=== PATIENT | female | born 1945 | race American Indian/Alaskan Native ===

== ENCOUNTER 2017-01-21 06:43 | Day surgery (SDC) | payer BC, MEDICARE ==
[2017-01-16 08:42] VITALS: BMI 27.0
[2017-01-21 07:28] LABS: ADD MANUAL DIFF? NO
[2017-01-21 07:36] LABS: BASO # 0.01 K/mm3 (0.0-2.0); BASO % 0.2 % (0.0-3.0); EOS # 0.1 (0.0-0.7); EOS % 1.8 % (1.5-5.0); GRAN % 80.8 % (50.0-68.0); HEMATOCRIT 34.5 % (36.0-48.0); LYMPH # 0.5 (1.2-3.4); LYMPH % 9.5 % (22.0-35.0); MEAN CELL VOLUME 94.5 fL (80.0-105.0); MEAN CORPUSCULAR HEMOGLOBIN 31.8 pg (25.0-35.0); MEAN CORPUSCULAR HGB CONC 33.6 g/dl (31.0-37.0); MEAN PLATELET VOLUME 8.8 fl (7.0-11.0); MONO # 0.4 (0.1-0.6); MONO % 7.7 % (1.0-6.0); PLATELET COUNT 152 10^3/uL (120.0-450.0); RED CELL DISTRIBUTION WIDTH 13.8 % (11.5-14.5); WHITE BLOOD COUNT 5.5 10^3/ul (4.5-11.0)
--- NOTE | 2017-01-21 07:39 | HP ---
REASON FOR ADMISSION: Left heart catheterization, possible angioplasty, because of abnormal stress t est. BRIEF CLINICAL HISTORY: A 71-year-old female with past medical history of lung CA, inoperable, chemo , complained of retrosternal chest pain on exertion, status post radiation therapy for lung carcinoma . The patient underwent a stress test which shows a decreased LV function as well as abnormal stress test. The patient is scheduled for cardiac catheterization, possible angioplasty. PAST MEDICAL HISTORY: Significant for hypertension, inoperable lung CA, status post chemo. Previous cardiac workup as follows: The patient underwent echocardiography that shows ejection fract ion 25%-30%, trace to mild mitral regurgitation/tricuspid regurgitation, severe anterolateral hypokin esis noted, on echo wall motion abnormalities noted. Stress test shows a fixed defect, ejection frac tion 23% dated 12/26/2016 done in [facility] that shows abnormal myocardial perfusion stud y, fixed anterior defect most likely due to breast soft tissue severe, LV dysfunction. Echo shows se richard anterior wall hypokinesis. The patient is complaining of chest pain and shortness of breath. REVIEW OF SYSTEMS: As per HPI. CURRENT MEDICATIONS: The patient is taking at home potassium chloride, metoprolol succinate 50 mg da cm, losartan/hydrochlorothiazide combination 25/100, ____, vitamin D3, benzoate and ____. ALLERGIES: No known drug allergies. PHYSICAL EXAMINATION: VITAL SIGNS: The height of the patient is 5 feet 9 inches, weight of the patient 183 pounds, body ma ss index ____ kg, blood pressure 120/70, heart rate 80. HEENT: PERRLA. Extraocular muscles intact. NECK: Supple. No carotid bruits. No thyromegaly. CHEST: Clear to auscultation. HEART: S1, S2 regular. ABDOMEN: Soft. EXTREMITIES: Clubbing and cyanosis negative. IMPRESSION: Abnormal stress test, cardiomyopathy, rule out coronary artery disease, defect suspiciou s secondary to possibly breast attenuation, echo shows severe hypokinesis anterior wall. Ejection fr action 25%-30%, trace to mild mitral regurgitation, trace to mild tricuspid regurgitation, lung cance r, status post chemo, inoperable, hypertension, hyperlipidemia, chronic obstructive pulmonary disease . RECOMMENDATION: Cardiac catheterization with ____ Plavix, further recommendation after cardiac cath. Will follow with you. Thank you, Dr. Amaya, for providing us the opportunity in taking care of the patient. Monty Herrera MD cc:Judith Amaya MD 305 TT: 01/18/2017 17:43:17 jn
[2017-01-21 07:43] LABS: CALCIUM 8.9 mg/dL (8.4-10.5); POTASSIUM 3.1 mmol/L (3.6-5.0)
[2017-01-21 07:50] LABS: INR 0.96 (0.93-1.08); PARTIAL THROMBOPLASTIN TIME 26.6 Seconds (23.7-30.8)
[2017-01-21] MEDS ORDERED: Potassium Chloride 20 mEq ER Tab PO ONE ×2 (08:01→11:30)
[2017-01-21] MEDS ORDERED: Midazolam 2 MG/2 ML VIAL ONE (08:55)
[2017-01-21] MEDS ORDERED: Iodixanol 320 MG/ML 200 ML BOTTLE IV ONE (08:56)
[2017-01-21] MEDS ORDERED: Iohexol 350mgl/ml 50 ML ONE (08:56)
[2017-01-21] MEDS ORDERED: Lidocaine 2% Inj (20ml) ONE (09:17)
[2017-01-21] MEDS ORDERED: Sodium Chloride 0.9% 1,000 ML IV SCH (10:30)
[2017-01-21 10:38] VITALS: TEMP 97.4
[2017-01-21 13:02] VITALS: RESP 20
[2017-01-21 13:35] LABS: BLOOD UREA NITROGEN 19 mg/dL (7-21); CALCIUM 8.7 mg/dL (8.4-10.5); CARBON DIOXIDE 28 mmol/L (21-33); CHLORIDE 100 mmol/L (98-107); GFR AFRICAN-AMERICAN > 60; GLUCOSE,RANDOM 96 mg/dL (70-110); POTASSIUM 4.1 mmol/L (3.6-5.0); SODIUM 133 mmol/L (132-148)
[2017-01-21 14:34] VITALS: O2SAT 98
[2017-01-21 14:35] VITALS: BP 119/76; PULSE 87
--- NOTE | 2017-01-21 16:50 | CARD ---
APPROVED REPORT Procedure(s) performed: Left Heart Catheterization HISTORY The patient is a 72 year-old female with a history of : most recent EF: 23%. (EF Method: RADIONUCLIDE), chronic lung disease, tobacco history() : The patient is a former smoker , hypertension , Hx of Lung Ca s?p Chemo c/o chest pain and SOB, ALFONSO and abnormal stress test. INDICATION The indication(s) include : positive stress test, chest pain, dyspnea. CASE TECHNIQUE The patient was brought electively to the Cardiac Catheterization Laboratory in a fasting state and was prepped and draped in a sterile manner. The right femoral groin was infiltrated with 2% Lidocaine subcutaneous anesthesia. A 6 Fr x 11 cm Sangeeta sheath was inserted into the right femoral artery without difficulty. Coronary angiography was performed using coronary diagnostic catheters. The left coronary system was accessed and visualized with a Diagnostic ,5 Fr JL 3.5 catheter. The right coronary system was accessed and visualized with a Diagnostic ,5 Fr JR 4 catheter. The left ventricle was accessed and visualized with a 5 Fr Pigtail 145 (Angled) catheter. Left ventriculogram was performed in DUFFY projection. Closure device was deployed with a 6 Fr / 7 Fr MynxGrip without any complications. The patient tolerated the procedure well and there were no complications associated with the procedure. Vessel Analysis The patient's coronary anatomy is right dominant. The left main coronary artery is a large size vessel without significant stenosis. The left main bifurcates to the left anterior descending and circumflex. The left anterior descending artery is a large size vessel without significant stenosis. Tortous vessel The first diagonal branch is a large size vessel without significant stenosis. The second diagonal branch is a small size vessel without significant stenosis. The circumflex artery is a medium size vessel with intimal irregularities. Tortous vessel The first obtuse marginal branch is a medium size vessel without significant stenosis. The right coronary artery is a large size vessel with intimal irregularities. The right posterior descending artery is a large size vessel with diffuse calcification noted throughout this vessel and without significant stenosis. Left Ventricle The left ventricle is normal in size with decreased contractility. Non-Ischemic cardiomyopathy. The left ventricular ejection fraction is estimated to be 30-35%. The left ventricular end diastolic pressure is 20 mmHg. There was no gradient across the aortic valve upon pullback. Conclusion Normal Coronaries, Non ischemic CMP. EF-30-35%, EDP-20 mmof HG Recommendations Aggressive Medical TherapyCardiac Risk Reduction Program Add Dig, Diuretic, Coreg, OMEGA as Bp is tolerated and Spironolactone. F/U MUGA Scan to Assess Need for AICD. CC: DRs. Angulo/ Royal
== END 2017-01-21 15:20 | disposition home or self-care (01) ==
LOC: CATH 06:43
PROVIDERS: ATTEND Internal Medicine Cardiovascular Disease
DX: I42.8 Other cardiomyopathies (principal); I08.1 Rheumatic disorders of both mitral and tricuspid valves; I10 Essential (primary) hypertension; E78.5 Hyperlipidemia, unspecified; J44.9 Chronic obstructive pulmonary disease, unspecified; R06.02 Shortness of breath; R07.9 Chest pain, unspecified; Z87.891 Personal history of nicotine dependence; Z92.21 Personal history of antineoplastic chemotherapy; Z92.3 Personal history of irradiation; Z85.118 Personal history of other malignant neoplasm of bronchus and lung
CPT/HCPCS: 36415; 80048; 85025; 85610; 85730; 86850; 86900; 93458; 99152; 99153; C1760; C1769; C1887 ×2; C2629; J1642; J1644 ×2; J1940; J2250; J3010; J7040 ×2; J7120; Q9967

== ENCOUNTER 2017-09-04 07:11 | Day surgery (SDC) | payer BC, MEDICARE ==
[2017-09-03 08:08] VITALS: BMI 29.5
[2017-09-04 07:40] LABS: BASO # 0.01 K/mm3 (0.0-2.0); BASO % 0.2 % (0.0-3.0); EOS # 0.1 (0.0-0.7); EOS % 1.8 % (1.5-5.0); GRAN # 4.28 (1.4-6.5); GRAN % 69.9 % (50.0-68.0); HEMATOCRIT 36.1 % (36.0-48.0); LYMPH # 1.2 (1.2-3.4); LYMPH % 19.4 % (22.0-35.0); MEAN CELL VOLUME 95.8 fl (80.0-105.0); MEAN CORPUSCULAR HEMOGLOBIN 31.3 pg (25.0-35.0); MEAN CORPUSCULAR HGB CONC 32.7 g/dl (31.0-37.0); MEAN PLATELET VOLUME 8.9 fl (7.0-11.0); MONO # 0.5 (0.1-0.6); MONO % 8.7 % (1.0-6.0); RED CELL DISTRIBUTION WIDTH 15.4 % (11.5-14.5); WHITE BLOOD COUNT 6.1 10^3/ul (4.5-11.0)
[2017-09-04 07:55] LABS: CALCIUM 9.3 mg/dL (8.4-10.5); POTASSIUM 3.3 mmol/L (3.6-5.0)
[2017-09-04 08:00] LABS: INR 1.04 (0.93-1.08); PARTIAL THROMBOPLASTIN TIME 28.7 Seconds (25.1-36.5)
[2017-09-04 08:37] VITALS: RESP 20
[2017-09-04] MEDS ORDERED: Midazolam 2 MG/2 ML VIAL ONE (09:06)
[2017-09-04] MEDS ORDERED: Oxycodone/Acetaminophen 5/325 mg Tab PO PRN (09:51)
[2017-09-04] MEDS ORDERED: Sodium Chloride 0.45% 1,000 ML IV SCH (10:00)
[2017-09-04 10:38] VITALS: PULSE 93
[2017-09-04 10:52] VITALS: BP 119/72; TEMP 98; O2SAT 98
--- NOTE | 2017-09-04 13:02 | RAD ---
HISTORY: rt lung bx COMPARISON: CT-guided lung biopsy 09/04/2017 at 0936 hours FINDINGS: LUNGS: The right Port-A-Cath and right pararacheal masslike opacity is similar to scanogram. PLEURA: No significant pleural effusion identified, no pneumothorax apparent. CARDIOVASCULAR: Normal. OSSEOUS STRUCTURES: No significant abnormalities. VISUALIZED UPPER ABDOMEN: Normal. OTHER FINDINGS: IMPRESSION: No right or left-sided pneumothorax appreciated. Recent CT-guided biopsy noted Right par itracheal masslike opacity with right Port-A-Cath
--- NOTE | 2017-09-04 16:15 | CT ---
PROCEDURE: CT guided right upper lobe lung biopsy. HISTORY: History lung CA. Status post radiation and chemotherapy. Enlarging 6 cm right upper lobe mass contiguous with the trachea, vertebral body, and SVC. Probable recurrent disease. PHYSICIAN(S): Wilbur Kimble MD. TECHNIQUE: The relative risks and indications of the procedure were explained to the patient and consent obtained. The patient was placed prone on the CT scanner and preliminary images through the upper lungs obtained. Conscious sedation and monitoring were provided throughout the procedure by a nurse. There is a 6 cm infiltrative mass in the right upper lobe medially contiguous with the vertebral body, trachea, and SVC.. A right posterior approach was selected and the area prepped and draped in the usual sterile fashion. 1% Xylocaine was used to anesthetize the skin and soft tissues. A in gauge guiding needle was advanced into the 6 cm right upper lobe lung mass. Its position was confirmed with CT. Using coaxial technique, multiple core biopsies were obtained. The postprocedure images show no evidence of pneumothorax or significant hemorrhage.. IMPRESSION: 1. CT-guided right upper lobe lung biopsy as described above.
== END 2017-09-04 13:50 | disposition home or self-care (01) ==
LOC: SDS 07:11
PROVIDERS: ATTEND Radiology Vascular & Interventional Radiology
DX: C34.11 Malignant neoplasm of upper lobe, right bronchus or lung (principal); I10 Essential (primary) hypertension; Z87.891 Personal history of nicotine dependence

== ENCOUNTER 2018-08-15 08:02 | Day surgery (SDC) | payer MEDICARE ==
[2018-08-06 15:59] VITALS: BMI 24.7
[2018-08-15] MEDS ORDERED: Propofol 10 mg/ml Inj (20 ML) ONE (09:31)
[2018-08-15] MEDS ORDERED: Sodium Chloride 0.9% 1,000 ML IV SCH (09:45)
[2018-08-15] MEDS ORDERED: Midazolam 2 MG/2 ML VIAL ONE (09:51)
[2018-08-15] MEDS ORDERED: Etomidate 20 mg/10ml Inj IV ONE (10:14)
[2018-08-15 11:39] VITALS: BP 119/70; PULSE 91; RESP 18; TEMP 97.9; O2SAT 98
== END 2018-08-15 12:25 | disposition home or self-care (01) ==
LOC: ENDO 08:02
PROVIDERS: ATTEND Internal Medicine Gastroenterology
DX: K57.30 Diverticulosis of large intestine without perforation or abscess without bleeding (principal); K64.8 Other hemorrhoids; R93.3 Abnormal findings on diagnostic imaging of other parts of digestive tract; Z86.010 Personal history of colon polyps
CPT/HCPCS: 45378; J2250; J2405; J2704; J7030; J7040

== ENCOUNTER 2018-10-22 09:19 | Outpatient (CLI) | payer MEDICARE | END 2018-10-22 09:20 | disposition home or self-care (01) | LOC: RAD 09:19 | DX: R06.02 Shortness of breath (principal) ==

== ENCOUNTER 2018-11-06 12:12 | Outpatient (CLI) | payer MEDICARE | END 2018-11-06 12:13 | disposition home or self-care (01) | LOC: OPLAB 12:12 | DX: D64.9 Anemia, unspecified (principal); E78.5 Hyperlipidemia, unspecified; E83.40 Disorders of magnesium metabolism, unspecified; M81.0 Age-related osteoporosis without current pathological fracture ==

== ENCOUNTER 2018-11-27 11:42 | Outpatient (CLI) | payer MEDICARE | END 2018-11-27 11:43 | disposition home or self-care (01) | LOC: OPLAB 11:42 ==

== ENCOUNTER 2018-12-18 13:45 | Outpatient (CLI) | payer MEDICARE | END 2018-12-18 13:46 | disposition home or self-care (01) | LOC: OPLAB 13:45 ==

== ENCOUNTER 2019-01-07 05:27 | Outpatient (CLI) | payer MEDICARE | END 2019-01-07 05:28 | disposition home or self-care (01) | LOC: PET-BROA 05:27 | DX: C34.11 Malignant neoplasm of upper lobe, right bronchus or lung (principal) ==

== ENCOUNTER 2019-01-08 13:06 | Outpatient (CLI) | payer MEDICARE | END 2019-01-08 13:07 | disposition home or self-care (01) | LOC: OPLAB 13:06 | DX: D64.9 Anemia, unspecified (principal); E83.40 Disorders of magnesium metabolism, unspecified; E78.5 Hyperlipidemia, unspecified; M81.0 Age-related osteoporosis without current pathological fracture ==

== ENCOUNTER 2019-01-29 13:09 | Outpatient (CLI) | payer MEDICARE | END 2019-01-29 13:10 | disposition home or self-care (01) | LOC: OPLAB 13:09 ==